=== PATIENT | male | born 1955 | race Caucasian/White ===

== ENCOUNTER 2019-09-11 16:50 | Emergency (ER) | payer BC, SELFPAY ==
[2019-09-11 17:10] VITALS: BP 207/130; PULSE 64; RESP 20; TEMP 36.7; O2SAT 97; BMI 34.2
--- NOTE | 2019-09-11 17:47 | XR_ITS ---
WS: [id number] CHEST XRAY TECHNIQUE: Portable chest. CLINICAL INFORMATION: chest pain COMPARISON: None. FINDINGS: Heart: Cardiomegaly. Tortuous thoracic aorta. Lungs: Lungs are clear. No consolidation or pleural effusion. Bones: Normal visualized bony structures. XR/XR chest 1V portable [id number] IMPRESSION: No acute chest findings
--- NOTE | 2019-09-11 17:47 | ECG_ITS ---
Measurements Intervals [place] Rate: 59 P: 43 NC: 165 QRS: -28 QRSD: 85 T: 139 QT: 425 QTc: 423 SINUS BRADYCARDIA WITH OCCASIONAL SUPRAVENTRICULAR PREMATURE COMPLEXES BORDERLINE LEFT AXIS DEVIATION [QRS AXIS < -20] NONSPECIFIC T-WAVE ABNORMALITY No previous ECG available for comparison Electronically Signed On 09-11-2019 18:59:15 [employer] BUILDER by Isabela Rios M.D. [email or web address]
--- NOTE | 2019-09-11 17:48 | ED_ITS ---
Entered by Marbella Best, acting as scribe for Malathi Chun Sep 11, 2019 16:50 HPI - General Adult General: Chief complaint: General Medical Stated complaint: high bp Time Seen by Provider: 09/11/19 17:46 Source: patient Mode of arrival: ambulatory Limitations: no limitations History of Present Illness: HPI narrative: 64 yo male presents to ED with complaints of HTN. The patient went to the dentist (for surgical removal of some teeth) this morning and was told to go to his PCP because his blood pressure was so high. The patient went to [facility] and saw Dr Retana today, who told the patient to present to the ED due to the blood pressure and his creatnine level. The patient states he does not know exactly how long this has been going on because he does not go to a doctor. He said he takes no medication except for Alleve for occasional aches and pains. MD complaint: HTN Onset (ago): day(s) (today) Severity: severe Relieving factors: none Exacerbating factors: none Associated symptoms: Reports no associated symptoms; Deny chest pain, confusion, diaphoresis, dyspnea, headache(s), malaise, nausea, rash, palpitations, syncope or vomiting Treatments prior to arrival: none Review of Systems General: Reports: other (negative unless marked) Const: Denies: fever, chills, body aches, fatigue, malaise or diaphoresis Eyes: Denies: change in vision or blurry vision ENMT: Denies: throat pain, painful swallowing, hoarseness, ear pain, ear discharge, Change in hearing or nasal discharge Card: Denies: chest pain, palpitations, irregular heart rhythm, syncope, pre- syncope, shortness of breath on exertion or shortness of breath when lying down Resp: Denies: shortness of breath, productive cough, non-productive cough, whe ezing, coughing up blood or chest congestion GI: Denies: abdominal pain, nausea, vomiting, vomiting blood, coffee grounds in vomit, diarrhea, constipation, cramping, blood in stool or black tarry stool : Denies: flank pain, difficulty urinating, painful urination, urinary frequency, urinary urgency, decreased urine ouput, urinary incontinence or blood in urine Musc: Denies: neck pain, back pain, extremity pain, extremity swelling, joint pain, joint swelling, joint warmth or joint stiffness Skin/Breast: Denies: rash, skin tenderness or yellow skin Neuro: Denies: headache, numbness in extremities, weakness in extremities, changes in sensation, lack of coordination, difficulty walking, dizziness, vertigo or confusion Endo: Denies: excessive thirst, tired all the time, cold intolerance, excessive sweating, flushing or hot flashes Jared/Lymph: Denies: easy bruising, easy bleeding, petechiae or enlarged lymph nodes All/Imm: Denies: hives, throat swelling, tongue swelling, facial swelling or acute wheezing PFSH ED PFSH: Statuses (acute, chronic, etc) shown below reflect problem list status as previously entered and may not be historically accurate Social History Smoking and tobacco status: never smoked Course Vital Signs: Vital signs: Vital Signs Temperature 98.1 F 09/11/19 17:10 Pulse Rate 64 09/11/19 17:10 Respiratory Rate 20 H 09/11/19 17:10 Blood Pressure 207/130 09/11/19 17:10 Pulse Oximetry 97 09/11/19 17:10 MDM - General Adult MDM Narrative: Medical decision making narrative: The patient comes in for hig h blood pressure referred from a dentist office and then a primary care clinic. He is asymptomatic. He states that he has not been to the doctor in over 20 years. He has no chest pain, no shortness of breath, no leg edema, no dyspnea on exertion, no syncope or near syncopal type symptoms. His EKG does show some changes and his troponin is elevated but without anything for comparison it is unclear whether this is his baseline or not. The patient refuses to stay for any further testing. He refuses admission for optimization of his blood pressure. Despite my best efforts and family's best efforts he refuses to stay. He has been warned at length that the risk of him leaving could be or severe permanent disability but despite this he wants to be discharged. I did discuss the case with Dr. Cadet on-call for cardiology who recommended the patient starting metoprolol tart [place] and Norvasc. I will prescribe these medications at his advice. The patient agrees to take these to keep a blood pressure log and he will follow-up in the cardiology clinic as soon as possible. We will have case management work on getting him in there as soon as possible. The patient does understand he is welcome to return here should he change his mind or her symptoms change/worsen. Lab Data: Attestation: I reviewed the patient's lab results. Labs: Lab Results 09/11/19 09/11/19 09/11/19 Range/Units 18:15 18:15 18:15 WBC 6.8 (4.0-10.0) 10^3/ uL RBC 5.18 (4.1-5.3) 10^6/u L Hgb 14.9 (11.7-16.6) g/dL Hct 44.8 (42.0-52.0) % MCV 86.5 (80-94) fL MCH 28.8 (28.0-34.0) pg MCHC 33.3 (30.0-36.0) g/dL RDW 13.3 (12.1-15.1) % Plt Count 184 (130-400) 10^3/c mm MPV 10.8 H (7.4-10.4) fL Neut % (Auto) 61.2 % Lymph % (Auto) 25.3 % [place] % (Auto) 9.1 % Eos % (Auto) 3.4 % Baso % (Auto) 0.6 % Neut # (Auto) 4.2 (1.8-7.7) 10^3/u L Lymph # (Auto) 1.7 (0.8-4.8) 10^3/u L [place] # (Auto) 0.6 (0.2-0.9) 10^3/u L Eos # (Auto) 0.2 (0.0-0.8) 10^3/u L Baso # (Auto) 0.0 (0.0-0.1) 10^3/u L Nucleated RBC % (a uto) 0 % Nucleated RBCs # 0.0 /100WBC PT 13.70 H (10.5-13.3) SECO NDS INR 1.02 (0.8-1.2) Sodium 142 (136-145) mmol/L Potassium 3.3 L (3.5-5.1) mmol/L Chloride 103 (98-107) mmol/L Carbon Dioxide 24 (22-29) mmol/L Anion Gap 18.3 (5-19) BUN 29 H (8-23) mg/dL Creatinine 2.2 H (0.7-1.2) mg/dL GFR Calculation 30.5 L (90-130) mL/min Glucose 103 (74-106) mg/dL Calcium 9.3 (8.8-10.2) mg/Dl Total Bilirubin 0.4 (0.15-1.2) mg/dL AST 16 (0-40) U/L ALT 14 (0-41) U/L Alkaline Phosphata se 77 (40-130) IU/L Troponin T Baselin e (0-15) ng/mL NT-Pro-B Natriuret Pep 891 H (0-125) pg/mL Total Protein 7.6 (6.6-8.7) g/dL Albumin 4.6 (3.5-5.2) g/dL Globulin 3.0 (1.3-4.6) g/dL Urine Color (Yellow) Urine Appearance (CLEAR) Urine pH (5-7) Ur Specific Gravit y (1.005-1.030) Urine Protein (Negative) Urine Glucose (UA) (Normal) Urine Ketones (Negative) Urine Occult Blood (Negative) Urine Nitrate (Negative) Urine Bilirubin (NEGATIVE) Urine Urobilinogen (Negative) mg/dL Ur Leukocyte Rosa ase (Negative) 09/11/19 09/11/19 Range/Units 18:15 18:55 WBC (4.0-10.0) 10^3/ uL RBC (4.1-5.3) 10^6/u L Hgb (11.7-16.6) g/dL Hct (42.0-52.0) % MCV (80-94) fL MCH (28.0-34.0) pg MCHC (30.0-36.0) g/dL RDW (12.1-15.1) % Plt Count (130-400) 10^3/c mm MPV (7.4-10.4) fL Neut % (Auto) % Lymph % (Auto) % [place] % (Auto) % Eos % (Auto) % Baso % (Auto) % Neut # (Auto) (1.8-7.7) 10^3/u L Lymph # (Auto) (0.8-4.8) 10^3/u L [place] # (Auto) (0.2-0.9) 10^3/u L Eos # (Auto) (0.0-0.8) 10^3/u L Baso # (Auto) (0.0-0.1) 10^3/u L Nucleated RBC % (a uto) % Nucleated RBCs # /100WBC PT (10.5-13.3) SECO NDS INR (0.8-1.2) Sodium (136-145) mmol/L Potassium (3.5-5.1) mmol/L Chloride (98-107) mmol/L Carbon Dioxide (22-29) mmol/L Anion Gap (5-19) BUN (8-23) mg/dL Creatinine (0.7-1.2) mg/dL GFR Calculation (90-130) mL/min Glucose (74-106) mg/dL Calcium (8.8-10.2) mg/Dl Total Bilirubin (0.15-1.2) mg/dL AST (0-40) U/L ALT (0-41) U/L Alkaline Phosphata se (40-130) IU/L Troponin T Baselin e 63 H (0-15) ng/mL NT-Pro-B Natriuret Pep (0-125) pg/mL Total Protein (6.6-8.7) g/dL Albumin (3.5-5.2) g/dL Globulin (1.3-4.6) g/dL Urine Color Yellow (Yellow) Urine Appearance Clear (CLEAR) Urine pH 5 (5-7) Ur Specific Gravit y 1.020 (1.005-1.030) Urine Protein 1+ H (Negative) Urine Glucose (UA) Norm (Normal) Urine Ketones Negative (Negative) Urine Occult Blood 2+ H (Negative) Urine Nitrate Negative (Negative) Urine Bilirubin Neg (NEGATIVE) Urine Urobilinogen Norm (Negative) mg/dL Ur Leukocyte Rosa ase Negative (Negative) Imaging Data^: CXR: My impression: No acute cardiopulmonary disease EKG Data^: EKG 1: Attestation: I personally reviewed and interpreted this EKG as follows: (EKG performed and read at 1831?normal sinus rhythm at 59 beats a minute, nonspecific ST and T wave changes, PAC.) Discharge Plan Discharge Patient Disposition: Left Against Medical Advice Clinical Impression: Malignant hypertension, Renal insufficiency Condition: Stable Prescriptions: New metoprolol tartrate 25 mg tablet 12.5 mg PO BID Qty: 30 RF: 0 Norvasc 10 mg tablet 10 mg PO DAILY Qty: 30 RF: 0 No Action cetirizine 10 mg Tablet 10 mg PO DAILY RF: 0 ranitidine HCl 150 mg Tablet 150 mg PO DAILY RF: 0 Aleve 220 mg Capsule 220 mg PO DAILY PRN (Reason: Pain) RF: 0 Discharge Orders: Discharge Order (Routine); Ordered 09/11/19 Ordered By: Malathi Chun Referrals: Aftab Retana MD [Primary Care Provider] - Isabela Rios MD [Physician] - Discharge Diet: Low Salt Discharge Activity: Increase activity as tolerated Patient Instructions: Hypertension, Chronic Kidney Disease (ED), Chronic Hypertension (ED), Low Sodium Diet (ED), Hypertension (ED), Impaired Kidney Function (ED) Activity Restrictions/Additional Instructions: You're leaving AGAINST MEDICAL ADVICE and are at risk for or severe permanent disability by doing so. You are more than welcome to return at any time for recheck and for further evaluation and care suture change you change your mind. Be certain to follow-up with Dr. Cadet or Dr. Rios in the cardiology office as soon as possible. Keep a blood pressure log 4 times daily. If you change your mind please return to the ER immediately for recheck. Stand Alone Forms: Against Medical Advice Coding Level of Care Code ED Advertising Layout Worker for Chg Fwd The documentation recorded by the Estephania wilks Valerie R, accurately re flects the service I personally performed and the decisions made by Adiel winters Eli N Sep 11, 2019 16:50
[2019-09-11] MEDS: aspirin 81 mg Chew Tablet 324 MG PO (18:22)
[2019-09-11 18:31] LABS: Basophils % 0.6 %; Eosinophils # 0.2 10^3/uL (0.0-0.8); Eosinophils % 3.4 %; Hematocrit 44.8 % (42.0-52.0); Hemoglobin 14.9 g/dL (11.7-16.6); Lymphocytes # 1.7 10^3/uL (0.8-4.8); Lymphocytes % 25.3 %; Mean Corpuscular HGB Conc 33.3 g/dL (30.0-36.0); Mean Corpuscular Hemoglobin 28.8 pg (28.0-34.0); Mean Corpuscular Volume 86.5 fL (80-94); Mean Platelet Volume 10.8 fL (7.4-10.4); Monocytes # 0.6 10^3/uL (0.2-0.9); Monocytes % 9.1 %; Neutrophils # 4.2 10^3/uL (1.8-7.7); Neutrophils % 61.2 %; Nucleated Red Blood Cells % 0 %; Platelet Count 184 10^3/cmm (130-400); Red Blood Count 5.18 10^6/uL (4.1-5.3); Red Cell Distribution Width 13.3 % (12.1-15.1); White Blood Count 6.8 10^3/uL (4.0-10.0)
[2019-09-11 18:41] LABS: Troponin(5th) Baseline 63 ng/mL (0-15)
[2019-09-11 18:48] LABS: Alanine Aminotransferase 14 U/L (0-41); Albumin Level 4.6 g/dL (3.5-5.2); Alkaline Phosphatase 77 IU/L (40-130); Anion Gap 18.3 (5-19); Aspartate Amino Transferase 16 U/L (0-40); Blood Urea Nitrogen 29 mg/dL (8-23); Calcium 9.3 mg/Dl (8.8-10.2); Carbon Dioxide 24 mmol/L (22-29); Chloride 103 mmol/L (98-107); Glomerular Filtration Rate 30.5 mL/min (90-130); Glucose 103 mg/dL (74-106); NT Pro B Type Natriuretic Pept 891 pg/mL (0-125); Potassium 3.3 mmol/L (3.5-5.1); Sodium 142 mmol/L (136-145); Total Bilirubin 0.4 mg/dL (0.15-1.2); Total Protein 7.6 g/dL (6.6-8.7)
[2019-09-11 18:54] LABS: INR 1.02 (0.8-1.2)
[2019-09-11 19:25] LABS: Add Urine Microscopic? YES; Bilirubin Urine Neg (NEGATIVE); Blood Urine 2+ (Negative); Glucose Urine UA Norm (Normal); Ketones Urine Negative (Negative); Leukocyte Esterase Urine Negative (Negative); Nitrate Urine Negative (Negative); Protein Urine 1+ (Negative); Urine Appearance Clear (CLEAR); Urine Color Yellow (Yellow); Urobilinogen Urine Norm (Negative); pH Urine 5 (5-7)
[2019-09-11] MEDS: amlodipine 5 mg Tablet 10 MG PO (19:30)
[2019-09-11] MEDS: metoprolol tartrate 25 mg Tablet 12.5 MG PO (19:31)
[2019-09-11 19:36] VITALS: BP 207/134; PULSE 59; RESP 22; O2SAT 95
[2019-09-11 19:47] LABS: RBC Urine 0-4 /hpf (0-2)
[2019-09-11 19:48] LABS: Add Urine Culture? No; Bacteria Urine TRACE; Mucus Urine 1+
--- NOTE | 2019-09-11 23:47 | ECG_ITS ---
Measurements Intervals [place] Rate: 59 P: 43 MI: 165 QRS: -28 QRSD: 85 T: 139 QT: 425 QTc: 423 SINUS BRADYCARDIA WITH OCCASIONAL SUPRAVENTRICULAR PREMATURE COMPLEXES BORDERLINE LEFT AXIS DEVIATION [QRS AXIS < -20] NONSPECIFIC T-WAVE ABNORMALITY No previous ECG available for comparison [email or web address]
--- NOTE | 2019-09-12 10:12 | DCPLANNER ---
manager french had message to schedule a follow up appointment for patient with [facility]. manager french called [facility], spoke with Constance, a follow up appointment is scheduled for Sunday, October 22, 2019 at 1:[address] Rios. Clinic will call patient with appointment information.
--- NOTE | 2019-10-24 15:06 | DCPLANNER ---
Patient did attend appointment scheduled with [facility].
== END 2019-09-11 19:37 | disposition left against medical advice (07) ==
PROVIDERS: Emergency Provider Emergency Medicine; PCP Family Medicine
DX: I15.8 Other secondary hypertension (principal); C80.1 Malignant (primary) neoplasm, unspecified; N28.9 Disorder of kidney and ureter, unspecified; Z53.21 Procedure and treatment not carried out due to patient leaving prior to being seen by health care provider
CPT/HCPCS: 71045; 80053; 81003; 83880; 84484; 85025; 85610; 93005; 99282

== ENCOUNTER 2019-10-17 10:39 | Outpatient (CLI) | payer BC, SELFPAY ==
--- NOTE | 2019-10-17 | US_ITS ---
WS: [id number] ULTRASOUND RENAL TECHNIQUE: Ultrasound examination of both kidneys. CLINICAL INFORMATION: CHRONIC RENAL FAILURE COMPARISON: None. FINDINGS: RIGHT: Right kidney is normal in size and appearance. Echogenicity: Normal. Hydronephrosis: None. Perinephric fluid: None. Right kidney measures: 10.5 cm x 6.1 cm x 5.2 cm. LEFT: Left kidney is normal in size and appearance. Echogenicity: Normal. Hydronephrosis: None. Perinephric fluid: None. Left kidney measures: 10.3 cm x 5.0 cm x 4.5 cm. Normal visualized aorta. Normal bladder. US/US renal BI* [id number] IMPRESSION: Normal renal ultrasound
== END 2019-10-17 10:40 | disposition home or self-care (01) ==
LOC: RADOUTREAD 11:11
PROVIDERS: PCP Family Medicine; Visit Provider Family Medicine
DX: Z76.89 Persons encountering health services in other specified circumstances (principal)

== ENCOUNTER 2020-02-18 12:00 | Outpatient (CLI) | payer BC, SELFPAY | END 2020-02-18 12:01 | disposition home or self-care (01) | LOC: SLEEP 02-19 12:22 | PROVIDERS: PCP Family Medicine; Visit Provider Internal Medicine Cardiovascular Disease | DX: G47.30 Sleep apnea, unspecified (principal) | CPT/HCPCS: G0399 ==

== ENCOUNTER 2020-03-30 20:00 | Outpatient (CLI) | payer BC, SELFPAY | END 2020-03-30 20:01 | disposition home or self-care (01) | LOC: SLEEP 03-31 10:06 | PROVIDERS: PCP Family Medicine; Visit Provider Internal Medicine Cardiovascular Disease | DX: G47.33 Obstructive sleep apnea (adult) (pediatric) (principal) | CPT/HCPCS: 95811 ==

== ENCOUNTER 2021-06-23 10:18 | Outpatient (CLI) | payer OTHER, SELFPAY ==
--- NOTE | 2021-06-23 10:15 | USCV_ITS ---
Montez Urbano Age: 66 Gender: M : 1955 Exam Date: 06/23/2021 10:54 Ordering Phys: Isabela Rios MD ([email or web address]) Technologist: [place] [facility] [place]: CP BP: 140 / 80 HR: 54 Rhythm: Sinus Technical Quality: Fair MEASUREMENTS (Male / Female) Normal Values 2D ECHO LV Diastolic Diameter PLAX 4.6 cm 4.2 - 5.9 / 3.9 - 5.3 cm LV Systolic Diameter PLAX 3.2 cm IVS Diastolic Thickness 1.0 cm 0.6 - 1.0 / 0.6 - 0.9 cm IVS Systolic Thickness 1.6 cm LVPW Diastolic Thickness 1.3 cm 0.6 - 1.0 / 0.6 - 0.9 cm LVPW Systolic Thickness 1.4 cm LVOT Diameter 2.0 cm LV Ejection Fraction 2D Teich 56.8 % LA Diameter 3.6 cm LA Width 3.9 cm LA Height 5.2 cm RA Width 4.6 cm RA Height 5.7 cm M-MODE RV Diastolic Diameter MM 1.6 cm Aortic Annulus Diameter 4.0 cm LA Ao Ratio MM 1.0 MV E Point Septal Separation 0.9 cm DOPPLER AV Peak Velocity 176.0 cm/s LVOT Peak Velocity 125.0 cm/s AV Area Cont Eq vti 2.7 cm squared AV Area Cont Eq pk 2.3 cm squared MV Area PHT 5.0 cm squared Mitral E to A Ratio 1.1 MV E' Velocity 50.5 cm/s Mitral E to MV E' Ratio 8.6 Mitral E to LV E' Lateral Ratio 8.1 Mitral E to LV E' Septal Ratio 9.3 TR Peak Velocity 302.0 cm/s TR Peak Gradient 36.5 mmHg TV Peak E Velocity 86.0 cm/s Right Atrial Pressure 3.0 mmHg Pulmonary Artery Systolic Pressu 39.5 mmHg FINDINGS Left Ventricle Normal left ventricular size, systolic function and wall thickness, with no regional wall motion abnormalities. Left ventricular ejection fraction is estimated at 65 %. Normal diastolic function. Right Ventricle Normal right ventricular size and systolic function. Right ventricular systolic pressure 44 mmHg. Right Atrium Normal right atrial size. Right atrial pressure estimated at 8 mm Hg. Left Atrium Upper normal left atrial size. Mitral Valve Mildly thickened mitral valve. No mitral valve stenosis. Mild mitral valve regurgitation. Aortic Valve Structurally normal trileaflet aortic valve. No aortic valve stenosis. No aortic valve regurgitation. Tricuspid Valve Structurally normal tricuspid valve. No tricuspid valve stenosis. Trace to mild tricuspid valve regurgitation. Pulmonic Valve Structurally normal pulmonic valve. No pulmonary valve stenosis. Trace pulmonary valve regurgitation. Pericardium No pericardial effusion. Normal sized inferior vena cava with less than 50% respiratory variations. Aorta Normal size aortic root and proximal ascending aorta. CONCLUSIONS 1. Normal left ventricular size, systolic function and wall thickness, with no regional wall motion abnormalities. Left ventricular ejection fraction is estimated at 65 %. Normal diastolic function. 2. Normal right ventricular size and systolic function. 3. Mild mitral valve regurgitation. 4. Pulmonary artery pressure estimated at 44 mm Hg. 5. No prior similar studies to compare. Isabela Rios MD (Electronically Signed) Final Date: 28 June 2021 12:59 S
== END 2021-06-23 10:19 | disposition home or self-care (01) ==
LOC: US 10:20
PROVIDERS: PCP Family Medicine; Visit Provider Internal Medicine Cardiovascular Disease
DX: I10 Essential (primary) hypertension (principal); R07.9 Chest pain, unspecified; I34.0 Nonrheumatic mitral (valve) insufficiency
CPT/HCPCS: 93306

== ENCOUNTER → 2021-08-03 10:34 | Outpatient (BNVA) | payer OTHER, SELFPAY | PROVIDERS: PCP Family Medicine; Visit Provider Nurse Practitioner Family | DX: Z20.822 Contact with and (suspected) exposure to COVID-19 (principal) | CPT/HCPCS: 87635 ==

== ENCOUNTER 2021-08-06 08:57 | Outpatient (CLI) | payer OTHER, SELFPAY ==
[2021-08-06 07:44] VITALS: BP 140/85; PULSE 82; RESP 18; TEMP 36.8; O2SAT 97
[2021-08-06 09:53] VITALS: BP 126/74; PULSE 59; O2SAT 97
[2021-08-06 10:44] VITALS: BP 136/82; PULSE 60; RESP 17; O2SAT 95
== END 2021-08-06 08:58 | disposition home or self-care (01) ==
LOC: OPS 09:08
PROVIDERS: PCP Family Medicine; Visit Provider Nurse Practitioner Family
DX: U07.1 COVID-19 (principal)
CPT/HCPCS: 96365

== ENCOUNTER → 2022-07-11 10:47 | Outpatient (BNVA) | payer MEDICARE, MEDICAID, SELFPAY | PROVIDERS: PCP Family Medicine; Visit Provider Internal Medicine Cardiovascular Disease | DX: I12.9 Hypertensive chronic kidney disease with stage 1 through stage 4 chronic kidney disease, or unspecified chronic kidney disease (principal); N18.9 Chronic kidney disease, unspecified | CPT/HCPCS: 99214 ==

== ENCOUNTER → 2023-07-20 09:33 | Outpatient (BNVA) | payer MEDICARE, MEDICAID, SELFPAY | PROVIDERS: PCP Family Medicine; Visit Provider Internal Medicine Cardiovascular Disease | DX: I12.9 Hypertensive chronic kidney disease with stage 1 through stage 4 chronic kidney disease, or unspecified chronic kidney disease (principal); N18.9 Chronic kidney disease, unspecified; G47.33 Obstructive sleep apnea (adult) (pediatric); E66.9 Obesity, unspecified; Z68.35 Body mass index [BMI] 35.0-35.9, adult | CPT/HCPCS: 99214 ==

== ENCOUNTER → 2024-07-15 09:45 | Outpatient (BNVA) | payer MEDICARE, MEDICAID, SELFPAY | PROVIDERS: PCP Family Medicine; Visit Provider Nurse Practitioner Family | DX: I12.9 Hypertensive chronic kidney disease with stage 1 through stage 4 chronic kidney disease, or unspecified chronic kidney disease (principal); N18.9 Chronic kidney disease, unspecified; Z87.891 Personal history of nicotine dependence | CPT/HCPCS: 99213 ==